=== PATIENT | male | born 1965 | race Caucasian/White ===

== ENCOUNTER 2016-09-12 09:26 | Emergency (ER) | payer OTHER ==
--- NOTE | 2016-09-12 10:23 | ED ---
Back Pain - HPI Summary HPI Summary: 51 male presents from [facility] urgent care with complaints of lower back pain that has been on going for the past 5 days. Patient states the pain began also radiating into his lower abdomen and groin however has resolved and is now just in his lower back. Patient states the pain is intermittent. At times it is very sharp and cramping, bringing him to his knees and when he is not experiencing this pain it is a dull ache. Took ibuprofen last night at 8:30pm. Denies nausea and vomiting. Admits to diarrhea and some blood in stool ~ 1 week ago. Patient does admit to feeling feverish and waking up around 1am diaphoretic. Patient denies any PMHx states he is a pretty healthy ulises and works out often. States he has had chronic low back aches here and there for quite a while but nothing like this. Was told ~3 months ago his kidney function was slightly higher than desired by his PCP however related it to working out and taking supplements, was rechecking in 6 months. Admits to having trouble with flow at times but denies blood and pain. Denies external physical changes to genitalia. No pain, only experiences some radiation into his groin at times. Told by [facility] it could be testicular torsion and therefore wanted to be sure it wasn't while in ED. Little to no pain at this time. States it seems to have been getting better. No recent trauma or injury. Denies saddle anesthesia, bladder/bowel incontinence, numbness/tingling. Has had decreased appetite/fluid intake. Admits to eating a lot of granola and nuts. No history of GIGU issues. Denies abdominal pain. - History of Current Complaint Chief Complaint: EDBackInjuryPain Stated Complaint: LOWER BACK/ABD PAIN Time Seen by Provider: 09/12/16 09:39 Hx Obtained From: Patient Onset/Duration: Sudden Onset, Lasting Days - 5-6, Still Present Onset/Duration: Started Days Ago Timing: Intermittent Severity Initially: Moderate Severity Currently: Mild Pain Intensity: 1 Pain Scale Used: 0-10 Numeric Character: Sharp - cramping, Dull, Aching Aggravating Symptom(s): Nothing Alleviating Symptom(s): Nothing Associated Signs And Symptoms: Positive: Abdominal Pain, Flank Pain - Risk Factors AAA Risk Factors: Negative TAD Risk Factors: Negative Cauda Equina Risk Factors: Negative Epidural Abscess Risk Factors: Negative - Allergies/Home Medications Allergies/Adverse Reactions: Allergies Allergy/AdvReac Type Severity Reaction Status Date / Time No Known Allergies Allergy Verified 09/12/16 09:45 Home Medications: Home Medications Ibuprofen TAB* [Motrin TAB* 600 MG] 600 mg PO DAILY 09/12/16 [History Confirmed 09/12/16] PMH/Surg Hx/FS Hx/Imm Hx Endocrine/Hematology History: Denies: Hx Diabetes Cardiovascular History: Denies: Hx Hypercholesterolemia, Hx Hypertension, Hx Myocardial Infarction Respiratory History: Denies: Hx Asthma History: Denies: Hx Kidney Stones - Surgical History Surgery Procedure, Year, and Place: none - Immunization History Immunizations Up to Date: Yes Infectious Disease History: No Infectious Disease History: Denies: Traveled Outside the [place] in Last 30 Days - Family History Known Family History: Positive: None - Social History Alcohol Use: Weekly Alcohol Amount: 2 beers per week Substance Use Type: Reports: None Smoking Status (MU): Current Some Day Smoker Type: Cigars Review of Systems Positive: Fever, Chills - subjective Cardiovascular: Negative Respiratory: Negative Positive: Abdominal Pain Positive: dysuria, flank pain. Negative: discharge, frequency, hematuria, incontinence, pain, urgency Musculoskeletal: Negative Skin: Negative Neurological: Negative All Other Systems Reviewed And Are Negative: Yes Physical Exam Triage Information Reviewed: Yes Vital Signs On Initial Exam: Initial Vitals Temp Pulse Resp BP Pulse Ox 98.0 F 80 20 122/84 99 09/12/16 09:28 09/12/16 09:28 09/12/16 09:28 09/12/16 09:28 09/12/16 09:28 Vital Signs Reviewed: Yes Appearance: Positive: Well-Appearing, No Pain Distress, Well-Nourished Skin: Positive: Warm, Skin Color Reflects Adequate Perfusion, Dry. Negative: Cold, Numb, Cyanosis @, Diaphoretic Head/Face: Positive: Normal Head/Face Inspection Eyes: Positive: Normal, Conjunctiva Clear ENT: Positive: Normal ENT inspection, Hearing grossly normal, Pharynx normal Neck: Positive: Supple, Nontender, No Lymphadenopathy Respiratory/Lung Sounds: Positive: Clear to Auscultation, Breath Sounds Present. Negative: Rales, Rhonchi, Wheezes Cardiovascular: Positive: Normal, RRR, Pulses are Symmetrical in both Upper and Lower Extremities. Negative: Murmur, Rub Abdomen Description: Positive: Nontender - very little pain with deep palpation of RLQ, No Organomegaly, Soft. Negative: Bruit, CVA Tenderness (R), CVA Tenderness (L), Distended, Guarding, Hernia @, McBurney's Point Tenderness, Peritoneal Signs, Pulsatile Mass Bowel Sounds: Positive: Present, Hypoactive Male Genital Exam: Positive: normal genitalia - per patient, deffered exam until after u/s. Negative: testicular tenderness (R), testicular tenderness (L) Musculoskeletal: Positive: Normal, Strength/ROM Intact. Negative: Limited @, Interruption @, Pain @ Neurological: Positive: Normal, Sensory/Motor Intact, Alert, Oriented to Person Place, Time, CN Intact II-III, Reflexes Intact, NV Bundle Intact Distally, Normal Gait Psychiatric: Positive: Affect/Mood Appropriate AVPU Assessment: Alert - Wally Coma Scale Best Eye Response: 4 - Spontaneous Best Motor Response: 6 - Obeys Commands Best Verbal Response: 5 - Oriented Coma Scale Total: 15 Diagnostics - Vital Signs Vital Signs Temp Pulse Resp BP Pulse Ox 09/12/16 09:43 76 98 09/12/16 09:41 125/70 09/12/16 09:40 98.3 F 81 16 125/70 100 09/12/16 09:28 98.0 F 80 20 122/84 99 - Laboratory Result Diagrams: 09/12/16 10:50 09/12/16 10:50 Lab Statement: Any lab studies that have been ordered have been reviewed, and results considered in the medical decision making process. - CT CT abd/pelvis CT Interpretation: Positive (See Comments) CT Interpretation Completed By: Radiologist - Ultrasound No standard instances Ultrasound Interpretation: No Acute Changes - NO EVIDENCE OF TESTICULAR MASS OR TORSION. Ultrasound Interpretation Completed By: Radiologist Re-Evaluation - Re-Evaluation First Eval Re-Evaluation Time: 12:05 Change: Unchanged Comment: updated patient on lab results and CT findings. educated on diverticulitis still not in significant pain and does not want anything at this time. Second Eval Re-Evaluation Time: 13:30 Change: Unchanged - still feel well updated on all labs and current plan after consult with surgery Back Pain Course/Dx - Course Course Of Treatment: did not want pain management at this time as it was very low. labs and CT obtained. U/S testicular also ordered due to patient preference as the suscpision for testicular torsion is very low. it was negative. given fluids. CT scan suggested possible acute diverticulitis with possible abscess formation. also noted a slightly elevated WBC. spoke with Dr Prado at 12:30pm who agreed to treat outpatient with follow up after evaluating patient in ED. discussed findings with patient and current treatment plan. Educated on Diverticulitis. aware of worsening signs and symptoms to watch out for. Follow up with Eve Friday at 8:45am if still in [place] if not close follow up with PCP as soon as arrives back home. He is here for work for the next ~3-10 days, lives in [place]. No other concerns at this time. Given first dose of cipro and flagyl while in ED, educated on side effects. rest of labs and PE findings normal. Patient agreed and wanted to be treated at home. Healthy and reliable. CT with contrast may be needed in future. Chose non contrast for concern of kidney stone per patients complaints and physical exam or else contrast would have been used. - Diagnoses Differential Diagnosis/HQI/PQRI: Positive: Renal Colic, Other - diverticulitis, appendicitis, testicular torsion, renal stones Provider Diagnoses: Diverticulitis - Provider Notifications Discussed Care Of Patient With: Dr Colin - Dr Sanchez also spoke with Time Discussed With Above Provider: 13:05 Instructed by Provider To: MD Will See In ED - outpatient treatment Discharge - Discharge Plan Condition: Stable Disposition: HOME Prescriptions: Ciprofloxacin TAB* [Cipro 500 MG TAB*] 500 mg PO BID #19 tab Metronidazole [Flagyl 500 MG TAB] 500 mg PO Q8HR #19 tab Patient Education Materials: Diverticulitis (ED), Ciprofloxacin (By mouth) Referrals: Non Staff,Doctor [Primary Care Provider] - Shmuel Prado MD [Medical Doctor] - Additional Instructions: Take antibiotic as directed until entire dose is finished. Take propbiotic as discussed in between doses and after taking antibiotic, daily. Eat lots of uzbek yogurt. Stay away from nuts, grains and popcorn. Drink plenty of fluids. Ibuprofen or tylenol for pain. Follow up with Dr Prado on Friday at 8:45, please do not miss this appointment. Also follow up when you arrive home [place]. If anything worsens or new symptoms develop please seek medical attention immediately.
[2016-09-12] MEDS: NS 0.9% 1000 ML* 2,000 ML IV ONE ×2 (10:48→11:28)
[2016-09-12 11:01] LABS: Hematocrit 53 % (42-52); Hemoglobin 17.6 g/dl (14.0-18.0); Mean Corpuscular HGB Conc 33 g/dl (31-36); Mean Corpuscular Hemoglobin 30 pg (27-31); Mean Corpuscular Volume 92 fL (80-94); Mean Platelet Volume 8 um3 (7.4-10.4); Red Blood Count 5.79 10^6/ul (4.0-5.4); Red Cell Distribution Width 14 % (10.5-15); White Blood Count 11.3 10^3/ul (3.5-10.8)
[2016-09-12 11:03] LABS: Add Diff/Slide Review? Slide Review Added; Comments Flag Yes
--- NOTE | 2016-09-12 11:09 | RAD ---
INDICATION: Back and left groin pain evaluate for kidney stone. COMPARISON: There are no prior studies available for comparison. TECHNIQUE: A CT scan of the abdomen and pelvis was performed without intravenous or oral contrast. Contiguous axial sections were obtained from the lung bases through the symphysis pubis. Images were reconstructed in the coronal and sagittal planes. FINDINGS: The lung bases are clear. No pleural effusion is present. The liver and spleen are normal in size. There is a small fluid density lesion in the lateral segment of the left hepatic lobe in the very anterior aspect of the liver measuring 1.8 x 0.9 cm in size most consistent with a cyst. No other focal lateral malleolus are seen. No calcified gallstones are noted. The pancreas is within normal limits in size. No ductal distention is noted. The adrenal glands and kidneys are normal in size. No hydronephrosis is seen. No renal, ureteral or bladder calculi are noted. The aorta is normal in caliber with mild calcific plaque present. No significant enlarged retroperitoneal lymph nodes are seen. The stomach, small and large bowel appear nondistended. The appendix is within normal limits. There is mild sigmoid diverticulosis. In addition there is thickening of the wall of the mid sigmoid colon with surrounding interstitial stranding suggesting inflammatory change. There is also a small ill-defined low density collection measuring 3.1 x 2.0 cm in size possibly representing an abscess. Evaluation is limited due to noncontrast technique. There is a small periumbilical hernia containing fat. No free intraperitoneal air or fluid is seen. There is bilateral spondylolysis at the L5 level. The vertebra are in normal alignment. No other focal osseous abnormalities are seen. IMPRESSION: THICKENING OF THE WALL OF THE SIGMOID COLON WITH ADJACENT INTERSTITIAL STRANDING AND SMALL FLUID COLLECTION SUSPICIOUS FOR DIVERTICULITIS AND POSSIBLY PERIDIVERTICULAR ABSCESS. RECOMMEND CLINICAL CORRELATION AND FOLLOW-UP.
[2016-09-12 11:26] LABS: Albumin 3.8 g/dL (3.2-5.2); BUN/Creatinine Ratio 12.5 (8-20); Calcium 9.4 mg/dL (8.6-10.3); EGFR African American 88.2 (>60); EGFR Non-African American 68.6 (>60); Globulin 3.2 g/dL (2-4); Potassium 4.1 mmol/L (3.5-5.0); Total Bilirubin 0.6 mg/dL (0.2-1.0)
--- NOTE | 2016-09-12 12:15 | RAD ---
INDICATION: Left testicular pain. Evaluate for torsion. Diagnosed with diverticulitis on concurrent renal stone CT COMPARISON: Renal stone CT same date TECHNIQUE: Duplex interrogation of the scrotum was performed. FINDINGS: Testicles: The testicles are Normal in size and echogenicity. There is no evidence of testicular mass. There is symmetric flow on Doppler interrogation. There is no evidence of torsion.. The right testis measures 4.6 x 2.2 x 3.1 cm and the left 4.3 x 2.3 x 2.7 cm. There is symmetric flow on Doppler interrogation. Epididymides: There is no evidence of an epididymal mass. The epididymides are normal in size. There is symmetric flow on Doppler interrogation. The right epididymal head measures 1.1 x 1.4 cm and the left 1.3 x 1.0 cm. Hydroceles: Small bilateral hydroceles. Varicoceles: None. Other: None. IMPRESSION: NO EVIDENCE OF TESTICULAR MASS OR TORSION.
[2016-09-12] MEDS ORDERED: metroNIDAZOLE TAB* 250 MG PO ONE (14:08)
[2016-09-12] MEDS ORDERED: Ciprofloxacin TAB* 500 MG PO ONE (14:08)
[2016-09-12 14:30] LABS: Urine Bilirubin Negative (Negative); Urine Glucose Negative (Negative); Urine Nitrite Negative (Negative)
[2016-09-12 15:06] VITALS: BP 124/78
== END 2016-09-12 15:03 | disposition home or self-care (01) ==
LOC: ED 09:26
DX: K57.92 Diverticulitis of intestine, part unspecified, without perforation or abscess without bleeding (principal)
CPT/HCPCS: 36415; 74176; 76870; 80053; 81003; 83605; 83690; 85025; 99284; A9270-GY

== ENCOUNTER → 2016-09-30 10:19 | Emergency (ER) | payer OTHER ==
[2016-09-30 10:32] VITALS: BP 112/73
== END | disposition left against medical advice (07) ==
LOC: ED 10:19
DX: R10.9 Unspecified abdominal pain (principal); Z53.21 Procedure and treatment not carried out due to patient leaving prior to being seen by health care provider